=== PATIENT | male | born 1960 | race African-American/Black ===

== ENCOUNTER 2020-04-25 10:31 | Inpatient (IN) | payer MEDICAID ==
[~2020-04-25] VITALS: Ht 188 cm; Wt 139.3 kg
[2020-04-25] MEDS ORDERED: SODIUM CHLORIDE 0.9% 1,000 ML IV ONE (10:50)
[2020-04-25 11:19] LABS: BASOPHILS % 1.3 % (0.0-2.0); EOSINOPHILS % 2.7 % (0.0-5.0); HEMATOCRIT. 39.6 % (42.0-52.0); HEMOGLOBIN. 13.3 g/dL (14.0-18.0); LYMPHOCYTES % 15.6 % (20.0-50.0); MEAN CORPUSCULAR HEMOGLOBIN 31.3 pg (28.0-32.0); MEAN CORPUSCULAR VOLUME 93.2 fL (80.0-94.0); MEAN PLATELET VOLUME 8.3 fl (7.4-10.4); MONOCYTES % 6.4 % (2.0-8.0); PLATELET 244 x1000/uL (130-400); RED BLOOD CELL COUNT 4.25 mill/uL (4.7-6.1); RED CELL DISTRIBUTION WIDTH 15.5 % (11.6-14.6)
[2020-04-25 11:26] LABS: CHLORIDE 101 mEq/L (98-107)
[2020-04-25 11:30] LABS: PARTIAL THROMBOPLASTIN TIME 24.3 sec (23.4-31.0); PROTHROMBIN TIME 10.9 sec (9.6-11.0)
[2020-04-25] MEDS ORDERED: KCL 20MEQ/100ML PREMIX 100 ML IV ONE (11:45)
[2020-04-25] MEDS ORDERED: ASPIRIN 81MG TABLET PO ONE (11:45)
[2020-04-25] MEDS ORDERED: POTASSIUM CHLORIDE 20MEQ TABLET SR PO ONE (11:45)
[2020-04-25] MEDS ORDERED: MAGNESIUM 1 G PREMIX 100 ML IV ONE (12:30)
[2020-04-25 16:25] VITALS: BP 116/49
[2020-04-25] MEDS ORDERED: DIPHENHYDRAMINE 50MG/ML VIAL IV PRN (17:30)
[2020-04-25] MEDS ORDERED: ENOXAPARIN 40MG/0.4ML SYR SUBCUT SCH (17:30)
[2020-04-25] MEDS ORDERED: ONDANSETRON HCL 4MG/2ML INJ IV PRN (17:30)
[2020-04-25] MEDS ORDERED: IPRATROPIUM/ALBUTEROL 0.5-3(2.5)MG/3ML NEB HHN PRN (17:30)
[2020-04-25] MEDS: SODIUM CHLORIDE 0.9% 1,000 ML IV SCH (18:58)
[2020-04-25 20:26] LABS: PHOSPHORUS 2.3 mg/dL (2.5-4.9)
[2020-04-25] MEDS: ENOXAPARIN 30MG/0.3ML SYR SUBCUT SCH (21:37)
[2020-04-25] MEDS: CLONIDINE 0.1MG TABLET PO PRN (21:37)
[2020-04-25] MEDS: ACETAMINOPHEN 325MG TABLET PO PRN (21:58)
[2020-04-25 22:00] VITALS: BP 141/98
[2020-04-25] MEDS ORDERED: POTASSIUM CHLORIDE 20MEQ TABLET SR PO SCH (22:00)
[2020-04-25] MEDS ORDERED: MAGNESIUM 2 G PREMIX 50 ML IV SCH (23:00)
[2020-04-26 01:03] VITALS: BP 142/82
[2020-04-26] MEDS ORDERED: POTASSIUM CHLORIDE 20MEQ TABLET SR PO SCH ×3 (02:00→07:15)
[2020-04-26 04:00] VITALS: BP 140/88
[2020-04-26 05:26] LABS: BASOPHILS % 0.8 % (0.0-2.0); EOSINOPHILS % 2.9 % (0.0-5.0); HEMATOCRIT. 34.7 % (42.0-52.0); HEMOGLOBIN. 11.7 g/dL (14.0-18.0); LYMPHOCYTES % 25.2 % (20.0-50.0); MEAN CORPUSCULAR HEMOGLOBIN 31.3 pg (28.0-32.0); MEAN CORPUSCULAR VOLUME 92.8 fL (80.0-94.0); MEAN PLATELET VOLUME 8.7 fl (7.4-10.4); MONOCYTES % 8.2 % (2.0-8.0); NEUTROPHILS % 62.9 % (40.0-76.0); PLATELET 211 x1000/uL (130-400); RED BLOOD CELL COUNT 3.74 mill/uL (4.7-6.1); RED CELL DISTRIBUTION WIDTH 15.9 % (11.6-14.6)
[2020-04-26 05:42] LABS: CHLORIDE 103 mEq/L (98-107)
[2020-04-26 05:49] LABS: LDL CHOLESTEROL 114 mg/dL (5-100)
[2020-04-26 05:51] LABS: HDL CHOLESTEROL 27 mg/dL (40-59)
[2020-04-26] MEDS: ACETAMINOPHEN 325MG TABLET PO PRN (06:43)
[2020-04-26 08:00] VITALS: BP 148/106
[2020-04-26] MEDS: ENOXAPARIN 30MG/0.3ML SYR SUBCUT SCH ×2 (09:32→20:45)
[2020-04-26 12:00] VITALS: BP 163/119
[2020-04-26] MEDS ORDERED: POTASSIUM CHLORIDE 20MEQ TABLET SR PO NR (12:00)
[2020-04-26] MEDS: CLONIDINE 0.1MG TABLET PO PRN ×2 (12:53→20:45)
[2020-04-26] MEDS: SODIUM CHLORIDE 0.9% 1,000 ML IV SCH (14:46)
[2020-04-26 16:00] VITALS: BP 159/97
[2020-04-26 20:00] VITALS: BP 152/100
[2020-04-26] MEDS: HYDROCODONE/ACETAMINOPHEN 5/325MG TABLET PO PRN (20:57)
[2020-04-27] VITALS (8 sets, daily range): BP systolic 145–183; BP diastolic 74–134
[2020-04-27] MEDS: CLONIDINE 0.1MG TABLET PO PRN ×2 (04:45→16:41)
[2020-04-27 06:12] LABS: CLARITY URINE CLEAR (CLEAR); COLOR URINE YELLOW (YELLOW); KETONES URINE NEGATIVE (NEGATIVE); LEUKOCYTE ESTERASE URINE NEGATIVE (NEGATIVE); NITRITE URINE NEGATIVE (NEGATIVE); OCCULT BLOOD URINE NEGATIVE (NEGATIVE); PROTEIN URINE NEGATIVE (NEGATIVE); SPECIFIC GRAVITY URINE 1.015 (1.005-1.030); UROBILINOGEN URINE 0.2 E.U./dL (0.2-1.0)
[2020-04-27 08:26] LABS: BASOPHILS % 1.2 % (0.0-2.0); EOSINOPHILS % 5.4 % (0.0-5.0); HEMATOCRIT. 35.4 % (42.0-52.0); HEMOGLOBIN. 11.9 g/dL (14.0-18.0); LYMPHOCYTES % 33.6 % (20.0-50.0); MEAN CORPUSCULAR HEMOGLOBIN 31.4 pg (28.0-32.0); MEAN CORPUSCULAR VOLUME 93.3 fL (80.0-94.0); MEAN PLATELET VOLUME 8.8 fl (7.4-10.4); NEUTROPHILS % 48.8 % (40.0-76.0); PLATELET 205 x1000/uL (130-400); RED BLOOD CELL COUNT 3.79 mill/uL (4.7-6.1); RED CELL DISTRIBUTION WIDTH 15.5 % (11.6-14.6)
[2020-04-27] MEDS ORDERED: CLOPIDOGREL 75MG TABLET PO SCH (09:00)
[2020-04-27 09:30] LABS: CHLORIDE 104 mEq/L (98-107)
[2020-04-27] MEDS: ENOXAPARIN 30MG/0.3ML SYR SUBCUT SCH (09:34)
[2020-04-27 09:41] LABS: PHOSPHORUS 2.8 mg/dL (2.5-4.9)
[2020-04-27] MEDS: HYDROCODONE/ACETAMINOPHEN 5/325MG TABLET PO PRN ×2 (10:20→21:44)
[2020-04-27] MEDS: SODIUM CHLORIDE 0.9% 1,000 ML IV SCH (10:21)
[2020-04-27] MEDS: AMLODIPINE 5MG TABLET PO SCH (11:38)
[2020-04-27] MEDS ORDERED: POTASSIUM CHLORIDE 20MEQ TABLET SR PO NR (12:30)
[2020-04-27] MEDS ORDERED: CLON-457 PO (12:36)
[2020-04-27] MEDS ORDERED: SIMV10TA97 PO (12:36)
[2020-04-27] MEDS ORDERED: DOCU-267 PO (12:36)
[2020-04-27] MEDS ORDERED: HYDR-3281 PO (12:36)
[2020-04-27] MEDS ORDERED: CYCL10TA7 PO (12:36)
[2020-04-27] MEDS ORDERED: TIZA2CAP7 PO (12:36)
[2020-04-27] MEDS ORDERED: LOSA50TA41 PO (12:36)
[2020-04-27] MEDS ORDERED: CHLO25TA2 PO (12:36)
[2020-04-27] MEDS ORDERED: COR25 PO (12:36)
[2020-04-27] MEDS ORDERED: OMEP20TA2 PO (12:36)
[2020-04-27] MEDS ORDERED: DILT180T11 PO (12:36)
[2020-04-27] MEDS ORDERED: FLUT250D IH (12:36)
[2020-04-27] MEDS ORDERED: POTA8TAB PO (12:36)
[2020-04-27] MEDS ORDERED: MELA1TAB28 PO (12:36)
[2020-04-27] MEDS ORDERED: SPIR50TA5 PO (12:36)
[2020-04-27] MEDS ORDERED: FLUT15.844 BOTHNSTRLS (12:36)
[2020-04-27] MEDS ORDERED: ASPI-1497 PO (12:36)
[2020-04-27] MEDS ORDERED: ALBU18HF2 IH (12:36)
[2020-04-27] MEDS ORDERED: LOSA50TA3 PO (12:36)
[2020-04-27] MEDS ORDERED: Tylenol with Codeine PO (12:36)
[2020-04-27] MEDS ORDERED: TRAM50TA3 PO (12:36)
[2020-04-27] MEDS ORDERED: HYDR-4135 PO (12:36)
[2020-04-27] MEDS ORDERED: ERGO800010 PO (12:36)
[2020-04-27 20:21] LABS: ETHANOL BLOOD < 10 mg/dL
[2020-04-27 20:23] LABS: HDL CHOLESTEROL 33 mg/dL (40-59); LDL CHOLESTEROL 136 mg/dL (5-100)
[2020-04-27 20:43] LABS: FOLIC ACID (FOLATE) SERUM 3.8 ng/mL (>5.38)
[2020-04-27] MEDS ORDERED: LABETALOL 5MG/ML SYR 20 MG/4 ML SYRINGE IV PRN (21:00)
[2020-04-27] MEDS ORDERED: AMLODIPINE 5MG TABLET PO NR (21:11)
[2020-04-27] MEDS: HYDRALAZINE HCL 25MG TABLET PO SCH (21:38)
[2020-04-28] VITALS (8 sets, daily range): BP systolic 134–188; BP diastolic 81–126
[2020-04-28 04:57] LABS: *AMPHETAMINES SCREEN URINE NEGATIVE (NEGATIVE); *BARBITURATES SCREEN URINE NEGATIVE (NEGATIVE); *BENZODIAZEPINES SCREEN URINE NEGATIVE (NEGATIVE); *COCAINE SCREEN URINE NEGATIVE (NEGATIVE)
[2020-04-28 04:58] LABS: CANNABINOID URINE SCREEN NEGATIVE (NEGATIVE); METHADONE URINE SCREEN NEGATIVE (NEGATIVE); OPIATES URINE SCREEN PRESUMTIVE POSITIVE (NEGATIVE); PHENCYCLIDINE URINE SCREEN NEGATIVE (NEGATIVE)
[2020-04-28] MEDS: HYDRALAZINE HCL 25MG TABLET PO SCH ×3 (05:20→21:27)
[2020-04-28] MEDS: SODIUM CHLORIDE 0.9% 1,000 ML IV SCH (05:48)
[2020-04-28 06:32] LABS: EOSINOPHILS % 4.1 % (0.0-5.0); HEMATOCRIT. 36.9 % (42.0-52.0); HEMOGLOBIN. 12.3 g/dL (14.0-18.0); LYMPHOCYTES % 29.4 % (20.0-50.0); MEAN CORPUSCULAR HEMOGLOBIN 31.2 pg (28.0-32.0); MEAN CORPUSCULAR VOLUME 93.3 fL (80.0-94.0); MEAN PLATELET VOLUME 8.8 fl (7.4-10.4); MONOCYTES % 11.9 % (2.0-8.0); NEUTROPHILS % 53.6 % (40.0-76.0); PLATELET 225 x1000/uL (130-400); RED BLOOD CELL COUNT 3.95 mill/uL (4.7-6.1); RED CELL DISTRIBUTION WIDTH 15.4 % (11.6-14.6)
[2020-04-28 06:54] LABS: CHLORIDE 104 mEq/L (98-107)
[2020-04-28 08:07] LABS: *CREATININE RANDOM URINE 97.7 mg/dL (Not Estab.)
[2020-04-28] MEDS ORDERED: POTASSIUM CHLORIDE 20MEQ TABLET SR PO NR ×2 (08:15→19:30)
[2020-04-28] MEDS: AMLODIPINE 5MG TABLET PO SCH (09:18)
[2020-04-28] MEDS ORDERED: POTASSIUM CHLORIDE INJ 40 MEQ in DEXT 5% WATER 250 ML IV NR (09:30)
[2020-04-28] MEDS ORDERED: ENOXAPARIN 30MG/0.3ML SYR SUBCUT NR (12:45)
[2020-04-28] MEDS ORDERED: CLOPIDOGREL 75MG TABLET PO NR (12:45)
[2020-04-28] MEDS: ACETAMINOPHEN 325MG TABLET PO PRN (13:09)
[2020-04-28 17:18] LABS: CHLORIDE 105 mEq/L (98-107)
[2020-04-28] MEDS ORDERED: ATORVASTATIN CALCIUM 10MG TABLET PO SCH (21:00)
[2020-04-28] MEDS: ATORVASTATIN CALCIUM 10MG TABLET PO SCH (21:27)
[2020-04-29] VITALS: BP 170/104
[2020-04-29] MEDS: CLONIDINE 0.1MG TABLET PO PRN ×2 (00:04→17:08)
[2020-04-29] MEDS: HYDROCODONE/ACETAMINOPHEN 5/325MG TABLET PO PRN ×3 (01:20→23:04)
[2020-04-29 04:00] VITALS: BP 145/87
[2020-04-29] MEDS: HYDRALAZINE HCL 25MG TABLET PO SCH ×3 (06:00→21:09)
[2020-04-29] MEDS: SODIUM CHLORIDE 0.9% 1,000 ML IV SCH ×2 (06:20→22:42)
[2020-04-29 07:27] LABS: BASOPHILS % 0.9 % (0.0-2.0); EOSINOPHILS % 3.9 % (0.0-5.0); HEMATOCRIT. 36.1 % (42.0-52.0); LYMPHOCYTES % 24.5 % (20.0-50.0); MEAN CORPUSCULAR HEMOGLOBIN 31.2 pg (28.0-32.0); MEAN CORPUSCULAR VOLUME 93.6 fL (80.0-94.0); MEAN PLATELET VOLUME 8.5 fl (7.4-10.4); NEUTROPHILS % 59.7 % (40.0-76.0); PLATELET 216 x1000/uL (130-400); RED BLOOD CELL COUNT 3.85 mill/uL (4.7-6.1); RED CELL DISTRIBUTION WIDTH 15.3 % (11.6-14.6)
[2020-04-29 08:00] VITALS: BP_SYST 147; BP_SYST 158; BP_DIAS 90; BP_DIAS 94
[2020-04-29 08:10] LABS: CHLORIDE 106 mEq/L (98-107)
[2020-04-29] MEDS ORDERED: POTASSIUM CHLORIDE 20MEQ TABLET SR PO NR ×2 (09:00→20:00)
[2020-04-29] MEDS: AMLODIPINE 5MG TABLET PO SCH (09:25)
[2020-04-29] MEDS ORDERED: MIDAZOLAM HCL 2 MG/2 ML VIAL ONE ×2 (09:37→09:52)
[2020-04-29] MEDS ORDERED: FENTANYL CITRATE/PF 50MCG/ML 2ML VIAL ONE (09:38)
[2020-04-29] MEDS ORDERED: LIDOCAINE HCL 2% JELLY 5ML ONE (09:39)
[2020-04-29] MEDS ORDERED: TETRACAINE/BENZOCAINE/BUTAMBEN 20 GM SPRAY MM ONE (09:42)
[2020-04-29] MEDS ORDERED: HYDRALAZINE 20MG/ML VIAL ONE (10:40)
[2020-04-29 12:00] VITALS: BP 146/106
[2020-04-29] MEDS: FOLIC ACID 1MG TABLET PO SCH (13:01)
[2020-04-29 16:00] VITALS: BP 170/96
[2020-04-29 16:16] LABS: CLARITY URINE CLEAR (CLEAR); COLOR URINE YELLOW (YELLOW); KETONES URINE NEGATIVE (NEGATIVE); LEUKOCYTE ESTERASE URINE NEGATIVE (NEGATIVE); NITRITE URINE NEGATIVE (NEGATIVE); OCCULT BLOOD URINE NEGATIVE (NEGATIVE); PH URINE 7.5 (4.5-8.0); PROTEIN URINE NEGATIVE (NEGATIVE); SPECIFIC GRAVITY URINE 1.013 (1.005-1.030); UROBILINOGEN URINE 0.2 E.U./dL (0.2-1.0)
[2020-04-29] MEDS: APIXABAN 5 MG TABLET PO SCH (16:58)
[2020-04-29 18:04] LABS: CHLORIDE 106 mEq/L (98-107)
[2020-04-29 20:00] VITALS: BP 145/88
[2020-04-29] MEDS: ATORVASTATIN CALCIUM 10MG TABLET PO SCH (21:08)
[2020-04-30] VITALS: BP 150/93
[2020-04-30] MEDS: CLONIDINE 0.1MG TABLET PO PRN (01:12)
[2020-04-30] MEDS: HYDRALAZINE HCL 25MG TABLET PO SCH (05:19)
[2020-04-30 05:22] VITALS: BP 154/86
[2020-04-30 06:49] LABS: HEMATOCRIT. 36.2 % (42.0-52.0); MEAN CORPUSCULAR HEMOGLOBIN 31.1 pg (28.0-32.0); MEAN CORPUSCULAR VOLUME 93.8 fL (80.0-94.0); MEAN PLATELET VOLUME 8.6 fl (7.4-10.4); PLATELET 219 x1000/uL (130-400); RED BLOOD CELL COUNT 3.86 mill/uL (4.7-6.1); RED CELL DISTRIBUTION WIDTH 15.9 % (11.6-14.6)
[2020-04-30 06:56] LABS: CHLORIDE 105 mEq/L (98-107)
[2020-04-30 07:08] LABS: PHOSPHORUS 2.6 mg/dL (2.5-4.9)
[2020-04-30 07:13] LABS: TOTAL IRON BINDING CAPACITY 249 ug/dL (250-450)
[2020-04-30 08:00] VITALS: BP 134/95
[2020-04-30] MEDS: AMLODIPINE 5MG TABLET PO SCH (09:37)
[2020-04-30] MEDS: APIXABAN 5 MG TABLET PO SCH (09:37)
[2020-04-30] MEDS: FOLIC ACID 1MG TABLET PO SCH (09:37)
[2020-04-30] MEDS ORDERED: ATOR10TA PO (10:02)
[2020-04-30] MEDS ORDERED: HYDR-4134 PO (10:02)
[2020-04-30] MEDS ORDERED: SPIR25TA MT (10:02)
[2020-04-30] MEDS ORDERED: FOLI-43 PO (10:02)
[2020-04-30] MEDS ORDERED: POTASSIUM CHLORIDE 20MEQ TABLET SR PO NR (10:15)
[2020-04-30 11:01] VITALS: BP 154/90
[2020-04-30 14:04] LABS: PLATELET ESTIMATE NORMAL
== END 2020-04-30 12:30 | disposition home or self-care (01) | DRG 45 ==
LOC: ER 10:44 → 5WST 12:29 → EDBEDREQ 12:32 → EDBEDREQSVC 12:32 → EDBEDREQTM 12:32 → ENRESERV 12:44 → CANRESERV 12:44 → ENRESERV 14:45
PROVIDERS: ADMIT Internal Medicine; ATTEND Internal Medicine
DX: I63.40 Cerebral infarction due to embolism of unspecified cerebral artery (principal); D64.9 Anemia, unspecified; E66.01 Morbid (severe) obesity due to excess calories; E78.5 Hyperlipidemia, unspecified; E86.1 Hypovolemia; E87.6 Hypokalemia; I13.0 Hypertensive heart and chronic kidney disease with heart failure and stage 1 through stage 4 chronic kidney disease, or unspecified chronic kidney disease; I38 Endocarditis, valve unspecified; I21.A1 Myocardial infarction type 2; K21.0 Gastro-esophageal reflux disease with esophagitis; N18.3 Chronic kidney disease, stage 3 (moderate); J45.909 Unspecified asthma, uncomplicated; I50.32 Chronic diastolic (congestive) heart failure; G89.29 Other chronic pain; M54.5 Low back pain; F32.9 Major depressive disorder, single episode, unspecified; G90.8 Other disorders of autonomic nervous system; I34.0 Nonrheumatic mitral (valve) insufficiency; E78.00 Pure hypercholesterolemia, unspecified; R53.81 Other malaise; R26.9 Unspecified abnormalities of gait and mobility; R47.01 Aphasia; R47.1 Dysarthria and anarthria; Z20.828 Contact with and (suspected) exposure to other viral communicable diseases; I16.0 Hypertensive urgency; Z95.3 Presence of xenogenic heart valve; Z68.39 Body mass index [BMI] 39.0-39.9, adult; N17.0 Acute kidney failure with tubular necrosis
CPT/HCPCS: 36415; 70544; 70551; 71045; 76770; 80048; 80053; 80061; 80305; 80320; 81003; 82043; 82570; 82607; 82728; 82746; 83036; 83540; 83550; 83735; 83880; 83935; 84100; 84156; 84300; 84439; 84443; 84481; 84484; 85025; 87426; 93005; 93306; 93312; 93880; 93970; 94640; 97116; 97162; 99291; J0360; J1650; J2250; J3010; J3475; J3480; J3490; J7030; J7060; G0480